=== PATIENT | male | born 1950 | race Caucasian/White ===

== ENCOUNTER 2021-10-28 03:18 | Outpatient (CLI) | payer MEDICARE, BC, SELFPAY | END 2021-10-28 03:19 | disposition home or self-care (01) | LOC: AMB 11-03 10:59 | PROVIDERS: PCP Family Medicine; Visit Provider Family Medicine | DX: S09.90XA Unspecified injury of head, initial encounter (principal); R42 Dizziness and giddiness; W18.2XXA Fall in (into) shower or empty bathtub, initial encounter; Y92.002 Bathroom of unspecified non-institutional (private) residence as the place of occurrence of the external cause | CPT/HCPCS: A0425; A0427 ==

== ENCOUNTER 2021-10-28 03:49 | Emergency (ER) | payer MEDICARE, BC, SELFPAY ==
[2021-10-28] VITALS (16 sets, daily range): BP systolic 78–124; BP diastolic 53–73; PULSE 70–83; RESP 14–17; TEMP 35.5; O2SAT 96–99; BMI 27.3
--- NOTE | 2021-10-28 03:59 | CRLHL7_ITS ---
For Patients: As a result of the Century Cures Act, medical imaging exams and procedure reports are released immediately into your electronic medical record. You may view this report before your referring provider. If you have questions, please contact your health care provider. INDICATION: Syncope, head injury from fall TECHNIQUE: CT Head without i.v. contrast. Coronal and sagittal reformats were obtained. COMPARISON: None FINDINGS: CSF space: Unremarkable for age. Brain: No evidence of mass, acute infarction or hemorrhage is seen. No mass-effect or midline shift is seen. Mild diffuse cortical atrophy is noted. The brain parenchyma is otherwise normal in appearance with preservation of the corral-white matter junction. Calvarium: The visualized paranasal sinuses are well aerated. The mastoid air cells are clear. The visualized orbits are grossly unremarkable. The calvarium is unremarkable in appearance with no fractures identified. IMPRESSION: 1. No evidence of acute infarction, intracranial hemorrhage, or mass-effect seen. Please note that all CT scans at this facility use dose modulation, iterative reconstruction, and/or weight-based dosing when appropriate to reduce radiation dose to as low as reasonably achievable. Dictated by: Austin Contreras MD @ 10/28/2021 04:49:19 (Electronically Signed)
--- NOTE | 2021-10-28 04:00 | CRLHL7_ITS ---
For Patients: As a result of the Cures Act, medical imaging exams and procedure reports are released immediately into your electronic medical record. You may view this report before your referring provider. If you have questions, please contact your health care provider. INDICATION: Syncope, chest injury from fall TECHNIQUE: Chest radiograph 1 view on 2 films COMPARISON: 02/06/2016 FINDINGS: Mediastinum: The mediastinum is normal in appearance. The heart silhouette is normal in size and morphology. Lung: Both lungs are unremarkable in appearance. No sign of pleural effusion seen. No pneumothorax is identified. Bone and Soft tissue: Unremarkable for age. IMPRESSION: 1. No acute cardiopulmonary disease is seen. Dictated by: Austin Contreras MD @ 10/28/2021 04:45:07 (Electronically Signed)
--- NOTE | 2021-10-28 04:00 | CRLHL7_ITS ---
For Patients: As a result of the Century Cures Act, medical imaging exams and procedure reports are released immediately into your electronic medical record. You may view this report before your referring provider. If you have questions, please contact your health care provider. INDICATION: Syncope, fall with cervical spine injury TECHNIQUE: CT cervical spine without i.v. contrast. Coronal and sagittal reformats were obtained. COMPARISON: None FINDINGS: Alignment: Straightening of the spine is noted. Bone: No acute fractures or aggressive bone lesions are identified. Disc: There are degenerative disc disease noted at C3-4 through C6-7. Scattered facet osteoarthritis is noted bilaterally. Soft tissue: The prevertebral soft tissues are unremarkable in appearance. The visualized lung apices and mediastinum are unremarkable. Bilateral calcified carotid plaques are noted. IMPRESSION: 1. No acute osseous injuries are identified. Please note that all CT scans at this facility use dose modulation, iterative reconstruction, and/or weight-based dosing when appropriate to reduce radiation dose to as low as reasonably achievable. Dictated by: Austin Contreras MD @ 10/28/2021 04:53:22 (Electronically Signed)
--- NOTE | 2021-10-28 04:03 | ED_ITS ---
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 He ate and drank fine but felt sore in his arms and legs when he went to bed. Pt got up at 2:00 am and felt dizzy while using the bathroom. He went back to bed not feeling well with muscle aches. He then got up and took a hot bath after which he felt very light headed and tipped forward from a seated position bumping the front of his head. He did not lose consciousness. He made a full recovery but called for an ambulance to bring him to the hospital. Pt states no chest pain, palpitations, nausea, vomiting, cough, abd pain fever or chills. Pt states that he is prone to low blood pressure. which is present here in the ED as well. Not currently having any pain. Related Data Home Medications Medication Instructions Recorded Confirmed No Known Home Medications 10/28/21 10/28/21 albuterol sulfate 90 mcg/actuation 1 inh inhalation Q4H PRN shortness 10/28/21 10/28/21 aerosol inhaler of breath or wheezing cetirizine 10 mg tablet (24Hour 10 mg PO DAILY PRN 10/28/21 10/28/21 Allergy) guaifenesin 600 mg tablet, 600 mg PO BID PRN 10/28/21 10/28/21 extended release 12 hr (Mucinex) multivitamin (Daily Multi-Vitamin 1 tab PO DAILY 10/28/21 10/28/21 tablet) Allergies Allergy/AdvReac Type Severity Reaction Status Date / Time cat dander Allergy Verified 10/28/21 04:11 Review of Systems Status of ROS: Reports: 10 or more systems reviewed and unremarkable except as noted in History and below [facility] Medical History (Updated 10/28/21 @ 05:59 by Clemente Fregoso MD) Diverticulitis Surgical History (Updated 10/28/21 @ 04:07 by Clemente Fregoso MD) History of partial colectomy Social History Smoking Status: Never smoker Do you use any of these nicotine containing products: None How often do you have a drink containing alcohol: 2-3 times a week How many standard drinks containing alcohol do you have on a typical day: 1 or 2 How often do you have six or more drinks on one occasion: Never AUDIT-C Alcohol total score: 3 Non-prescribed substance use: denies use Exam Narrative: Exam Narrative: EXAM GENERAL: Patient appears comfortable and well. Head is normocephalic no signs of recent trauma EYES: No scleral icterus. ENT: Tympanic membranes and oropharynx normal. THYROID: no thyroid nodules or thyromegaly. LYMPH: No supraclavicular or cervical lymphadenopathy. SKIN: Visible skin seen during exam normal or with benign process only. EXT: No dependent lower extremity pedal edema. HEART: Regular rate and rhythm with no murmurs, rubs, or gallops. LUNGS: Clear to auscultation bilaterally with no crackles or wheezes. ABD: Soft, non tender, non distended. Midline abdominal incision well healed PSYCH: Good eye contact, speech is not pressured. Neurologic cranial nerves 2-12 grossly intact no focal defects. Const: Vital Signs, click to edit/add: Vital Signs - 24 hr 10/28/21 04:00 10/28/21 04:00 10/28/21 04:10 Temperature 96 F L Pulse Rate Pulse Rate [Left P ulse Oximeter] 76 75 71 Respiratory Rate 14 16 15 Blood Pressure Blood Pressure [Le ft Upper Arm] 124/64 78/56 L 86/53 L Pulse Oximetry 97 97 97 Oxygen Delivery Me od Room Air Room Air Room Air 10/28/21 04:20 10/28/21 04:22 10/28/21 04:41 Temperature Pulse Rate 74 74 Pulse Rate [Left P ulse Oximeter] 79 Respiratory Rate 17 Blood Pressure 102/62 95/67 Blood Pressure [Le ft Upper Arm] 102/62 Pulse Oximetry 98 99 98 [facility] 10/28/21 04:52 10/28/21 04:53 10/28/21 05:01 Temperature Pulse Rate 71 72 70 Pulse Rate [Left P ulse Oximeter] Respiratory Rate Blood Pressure 113/61 113/65 Blood Pressure [Le ft Upper Arm] Pulse Oximetry 96 96 96 Oxygen Delivery Ma thod 10/28/21 05:12 10/28/21 05:15 10/28/21 05:22 Temperature Pulse Rate 76 83 78 Pulse Rate [Left P ulse Oximeter] Respiratory Rate Blood Pressure 111/63 109/67 Blood Pressure [Le ft Upper Arm] Pulse Oximetry 97 97 97 Oxygen Delivery Me thod Course Course Hospital Course: Patient will CT of the head neck. EKG CBC troponin basic metabolic panel chest x-ray and d dimer. UA. 1 Liter of normal saline given. COVID collected Reevaluation(s) Reevaluation #1: Pt feeling well. CT of head and cervical spine negative upon my review as is chest x ray. CBC shows mild anemia, bmp, covid, ua d dimer all normal. 1 liter of Normal Saline given. Troponin negative times 2. Time: 05:54 Vital Signs Vital signs: Initial Vital Signs Temperature 96 F L 10/28/21 04:00 Temperature Source Temporal Artery Scan 10/28/21 04:00 Pulse Rate 76 10/28/21 04:00 Pulse Rhythm 10/28/21 04:00 Respiratory Rate 14 10/28/21 04:00 Respiratory Effort 10/28/21 04:00 Respiratory Depth Normal 10/28/21 04:00 Respiratory Pattern 10/28/21 04:00 Blood Pressure 124/64 10/28/21 04:00 Blood Pressure Mean 84 10/28/21 04:00 Blood Pressure Position Supine 10/28/21 04:00 Pulse Oximetry 97 10/28/21 04:00 Oxygen Delivery Method 10/28/21 04:00 Vital Signs Temperature 96 F L 10/28/21 04:00 Pulse Rate 76 10/28/21 04:00 Respiratory Rate 14 10/28/21 04:00 Blood Pressure 124/64 10/28/21 04:00 Pulse Oximetry 97 10/28/21 04:00 Oxygen Delivery Method 10/28/21 04:00 Temperature 96 F L 10/28/21 04:00 Pulse Rate 78 10/28/21 05:22 Respiratory Rate 17 10/28/21 04:20 Blood Pressure 109/67 10/28/21 05:22 Pulse Oximetry 97 10/28/21 05:22 Oxygen Delivery Method 10/28/21 04:20 Medical Decision Making MDM Narrative Medical decision making narrative: Pt who takes no home medications presents with syncope. No injuries found. Only lab abnormality is mild anemia. Pt given IV hydration and monitored. Pt feeling well and would like to go home with outpt follow up. Differential Diagnosis Differential Diagnosis: Vasovagal syncope, CT, PE, Seizure, Cerebral or Cervical Injury Lab Data Labs: Lab Results 10/28/21 10/28/21 10/28/21 Range/Units 04:10 04:10 04:10 WBC 11.19 H (4.50-11.00) K/uL RBC 3.52 L (4.30-5.90) m/uL Hgb 11.1 L (13.5-17.5) gm/dL Hct 34.2 L (37.0-53.0) % MCV 97 (80-100) fL MCH 32 (26-34) pg MCHC 33 (32-36) gm/dL RDW Coeff of Joseph 13.4 (11.5-15.5) % Plt Count 232 (140-440) K/uL Neut % (Auto) 85.2 H (42.0-72.0) % Lymph % (Auto) 8.8 L (20-44) % [place] % (Auto) 5.4 (0.0-11.0) % Eos % (Auto) 0.2 (0.0-7.0) % Baso % (Auto) 0.2 (0.0-3.0) % Neut # (Auto) 9.50 H (1.7-7.0) K/uL Lymph # (Auto) 1.00 (0.90-2.90) K/uL [place] # (Auto) 0.60 (0.00-0.90) K/UL Eos # (Auto) 0.00 (0.00-0.50) K/uL Baso # (Auto) 0.00 (0.00-0.30) K/uL Abs Immat Gran (auto) 0.02 (0.00-0.30) K/uL D-Dimer Quant (PE/DVT) 0.41 (0.00-0.50) ug/ml Sodium 139 (135-149) mmol/L Potassium 5.1 (3.6-5.1) mmol/L Chloride 106 (96-114) mmol/L Carbon Dioxide 26 (20-32) mmol/L BUN 61 H (7-30) mg/dL Creatinine 1.3 (0.5-1.5) mg/dL Estimated Creat Clear 52.87 Estimated GFR 59 ml/min Glucose 146 H (60-115) mg/dL Calcium 8.6 (8.4-10.6) mg/dL Troponin I < 0.01 L (0.01-0.04) ng/mL SARS-CoV-2 (PCR) (Negative) 10/28/21 Range/Units 04:15 WBC (4.50-11.00) K/uL RBC (4.30-5.90) m/uL Hgb (13.5-17.5) gm/dL Hct (37.0-53.0) % MCV (80-100) fL MCH (26-34) pg MCHC (32-36) gm/dL RDW Coeff of Joseph (11.5-15.5) % Plt Count (140-440) K/uL Neut % (Auto) (42.0-72.0) % Lymph % (Auto) (20-44) % [place] % (Auto) (0.0-11.0) % Eos % (Auto) (0.0-7.0) % Baso % (Auto) (0.0-3.0) % Neut # (Auto) (1.7-7.0) K/uL Lymph # (Auto) (0.90-2.90) K/uL [place] # (Auto) (0.00-0.90) K/UL Eos # (Auto) (0.00-0.50) K/uL Baso # (Auto) (0.00-0.30) K/uL Abs Immat Gran (auto) (0.00-0.30) K/uL D-Dimer Quant (PE/DVT) (0.00-0.50) ug/ml Sodium (135-149) mmol/L Potassium (3.6-5.1) mmol/L Chloride (96-114) mmol/L Carbon Dioxide (20-32) mmol/L BUN (7-30) mg/dL Creatinine (0.5-1.5) mg/dL Estimated Creat Clear Estimated GFR ml/min Glucose (60-115) mg/dL Calcium (8.4-10.6) mg/dL Troponin I (0.01-0.04) ng/mL SARS-CoV-2 (PCR) Negative SARS-CoV-2 (Negative) Discharge Plan Discharge Clinical Impression: Anemia, Syncope Patient Disposition: Home, Self-Care Condition: Stable Additional Instructions: Follow up with your doctor in the next week Activity Level: No Restrictions Discharge Diet: Regular Prescriptions: No Action albuterol sulfate 90 mcg/actuation HFA aerosol inhaler 1 inh INHALATION Q4H PRN (Reason: shortness of breath or wheezing) Hold Instructions: Doctor's Order Label Comments: INHALE TWO PUFFS BY MOUTH EVERY 4 HOURS NEEDED FOR SHORTNESS OF BREATH OR WHEEZING No Known Home Medications guaifenesin [Mucinex] 600 mg tablet extended release 12hr 600 mg PO BID PRN Hold Instructions: Doctor's Order cetirizine [24Hour Allergy] 10 mg tablet 10 mg PO DAILY PRN Hold Instructions: Doctor's Order multivitamin [Daily Multi-Vitamin] Tablet 1 tab PO DAILY Hold Instructions: Doctor's Order Follow Up/Referrals: Salvador Torres MD [Primary Care Provider] - Stand Alone Forms: [facility] Info Instructions
--- NOTE | 2021-10-28 04:05 | PC.NURSE ---
Blood pressures noted to be soft. Dr. Fregoso aware, will give 1L fluids.
[2021-10-28] MEDS: 0.9 % SODIUM CHLORIDE 1000 ml 1,000 ML IV (04:08)
[2021-10-28 04:20] LABS: Basophils Percent Auto 0.2 % (0.0-3.0); Eosinophils Percent Auto 0.2 % (0.0-7.0); Hematocrit 34.2 % (37.0-53.0); Hemoglobin* 11.1 gm/dL (13.5-17.5); Immature Granulocytes Abs Auto 0.02 K/uL (0.00-0.30); Lymphocytes Percent Auto 8.8 % (20-44); Mean Corpuscular HGB Conc 33 gm/dL (32-36); Mean Corpuscular Hemoglobin 32 pg (26-34); Mean Corpuscular Volume 97 fL (80-100); Monocytes Percent Auto 5.4 % (0.0-11.0); Neutrophils Percent Auto 85.2 % (42.0-72.0); Platelet Count* 232 K/uL (140-440); RDW Coefficient of Variation % 13.4 % (11.5-15.5); Red Blood Count 3.52 m/uL (4.30-5.90); White Blood Count* 11.19 K/uL (4.50-11.00)
[2021-10-28 04:21] LABS: Slide Review Reflex No
[2021-10-28 04:33] LABS: Chloride* 106 mmol/L (96-114); Potassium* 5.1 mmol/L (3.6-5.1); Sodium* 139 mmol/L (135-149)
[2021-10-28 04:36] LABS: Blood Urea Nitrogen* 61 mg/dL (7-30); Carbon Dioxide* 26 mmol/L (20-32); Creatinine* 1.3 mg/dL (0.5-1.5); Est. Creatinine Clearance* 52.87; Estimated Glomerular Filt Rate 59 ml/min; Glucose* 146 mg/dL (60-115)
[2021-10-28 04:37] LABS: Calcium* 8.6 mg/dL (8.4-10.6)
[2021-10-28 04:38] LABS: D Dimer Quantitative* 0.41 ug/ml (0.00-0.50)
[2021-10-28 04:49] LABS: Troponin I* < 0.01 ng/mL (0.01-0.04)
[2021-10-28 05:19] LABS: SARS PCR* Negative SARS-CoV-2 (Negative)
[2021-10-28 05:57] LABS: Troponin, Point-of-Care* 0.03 ng/ml (0.01-0.04)
== END 2021-10-28 06:13 | disposition home or self-care (01) ==
PROVIDERS: Emergency Provider Internal Medicine; PCP Family Medicine
DX: Z53.21 Procedure and treatment not carried out due to patient leaving prior to being seen by health care provider (principal)
CPT/HCPCS: 99281; 36415; 70450; 71045; 72125; 80048; 81003; 84484; 85025; 85379; 87635; 93005; 99283; J7030

== ENCOUNTER 2021-10-28 10:07 | Emergency (ER) | payer MEDICARE, BC, SELFPAY ==
[2021-10-28] VITALS (8 sets, daily range): BP systolic 92–114; BP diastolic 50–69; PULSE 70–94; RESP 18; O2SAT 96–99; BMI 27.3
--- NOTE | 2021-10-28 10:32 | CRLHL7_ITS ---
For Patients: As a result of the Century Cures Act, medical imaging exams and procedure reports are released immediately into your electronic medical record. You may view this report before your referring provider. If you have questions, please contact your health care provider. INDICATION: FALL AGAIN AFTER ER VISIT THIS AM. LACERATIONS TO BACK OF HEAD. COMPARISON: 10/28/2021 TECHNIQUE: A CT volumetric acquisition was performed of the brain without IV contrast. Please note that all CT scans at this facility use dose modulation, iterative reconstruction, and/or weight-based dosing when appropriate to reduce radiation dose to as low as reasonably achievable. FINDINGS: There is no intracranial hemorrhage, mass or mass effect. Mild generalized cortical atrophy. No hydrocephalus or extra-axial fluid collection. Normal corral-white differentiation. No fracture. Minimal mucosal thickening within the maxillary sinuses. IMPRESSION: No intracranial hemorrhage. Please note that all CT scans at this facility use dose modulation, iterative reconstruction, and/or weight-based dosing when appropriate to reduce radiation dose to as low as reasonably achievable. Dictated by Willem Castillo MD @ 10/28/2021 11:12:19 AM (Electronically Signed)
--- NOTE | 2021-10-28 10:49 | ED_ITS ---
HPI - General Adult General Date Seen: 10/28/21 Chief complaint: Syncope/Fainted Stated complaint: Fell hit head Time Seen by Provider: 10/28/21 10:26 Source: patient, family ( is present) and RN notes reviewed Mode of arrival: ambulatory Limitations: no limitations History of Present Illness HPI narrative: Patient is a 71-year-old male coming into the ER with recurrent syncope. He re portedly was seen overnight with syncope. Reports he had a head CT, neck CT, EKG and labs. He did treat remain yesterday, felt achy from doing that could not sleep last night. He got up around 2:00 a.m. to take a warm tub bath, fall asleep in the tub for little bit, got out of the tub and felt a little dizzy, made it to the toilet to sit down because he was feeling dizzy and then reportedly went out. He was discharged from his evaluation here in the ER for out patient follow up with his primary care doctor. He when out today in marked about 80 ft outside and states he felt good, the fracture felt good. Later he was sitting at the kitchen table and just completely when out. His was sitting across from him and she stated he all the sudden had a brief vacant stare and then slumped over. He actually went off of his chair, hit the top of his head and has 2 cuts there. He had the right front of his head on sober trigger as well. She did not note any seizure activity. Came to quickly. He notes no prodromal symptoms, no cardiac symptoms leading up to this. They note that his blood pressure does run low. Reviewed with them that he really should not be having issues with syncope while sitting at the kitchen table if he has been sitting there, would not think that this would be orthostatic changes. He does note he has restless legs syndrome mint night. His thoughts on yesterday is that he really did over do it outside and maybe felt a little dehydrated. Related Data Home Medications Medication Instructions Recorded Confirmed No Known Home Medications 10/28/21 10/28/21 albuterol sulfate 90 mcg/actuation 1 inh inhalation Q4H PRN shortness 10/28/21 10/28/21 aerosol inhaler of breath or wheezing cetirizine 10 mg tablet (24Hour 10 mg PO DAILY PRN 10/28/21 10/28/21 Allergy) guaifenesin 600 mg tablet, 600 mg PO BID PRN 10/28/21 10/28/21 extended release 12 hr (Mucinex) multivitamin (Daily Multi-Vitamin 1 tab PO DAILY 10/28/21 10/28/21 tablet) Allergies Allergy/AdvReac Type Severity Reaction Status Date / Time cat juan manuel Allergy Verified 10/28/21 04:11 Review of Systems Status of ROS: Reports: 10 or more systems reviewed and unremarkable except as noted in History and below [facility] Medical History (Updated 10/28/21 @ 13:22 by Virginia Soliz MD) Diverticulitis Surgical History (Updated 10/28/21 @ 04:07 by Clemente Fregoso MD) History of partial colectomy Social History Smoking Status: Never smoker Do you use any of these nicotine containing products: None How often do you have a drink containing alcohol: 2-3 times a week How many standard drinks containing alcohol do you have on a typical day: 1 or 2 How often do you have six or more drinks on one occasion: Never AUDIT-C Alcohol total score: 3 Non-prescribed substance use: denies use Exam Const: Vital Signs, click to edit/add: Vital Signs - 24 hr 10/28/21 10:13 10/28/21 11:05 10/28/21 11:30 Pulse Rate [Right Pulse Oximeter] 82 77 Pulse Rate [orthos tatic lying Pulse Oximeter] 77 Pulse Rate [orthos tatic sitting Puls e Oximeter] 82 Pulse Rate [orthos tatic standing Pul se Oximeter] 94 Respiratory Rate 18 Blood Pressure [Ri ght Upper Arm] 92/58 L 103/65 Blood Pressure [or thostatic lying Ri ght Arm] 114/57 L Blood Pressure [or thostatic sitting Right Arm] 100/57 L Blood Pressure [or thostatic standing Right Arm] 96/63 Pulse Oximetry 99 96 Oxygen Delivery Me thod Room Air Room Air 10/28/21 12:30 10/28/21 13:30 10/28/21 13:00 Pulse Rate [Right Pulse Oximeter] 70 75 85 Pulse Rate [orthos tatic lying Pulse Oximeter] Pulse Rate [orthos tatic sitting Puls e Oximeter] Pulse Rate [orthos tatic standing Pul se Oximeter] Respiratory Rate Blood Pressure [Ri ght Upper Arm] 111/69 92/50 L 92/50 L Blood Pressure [or thostatic lying Ri ght Arm] Blood Pressure [or thostatic sitting Right Arm] Blood Pressure [or thostatic standing Right Arm] Pulse Oximetry 97 98 98 Oxygen Delivery Me thod Room Air Room Air Room Air Documenting provider has reviewed patient's vital signs: yes Common normals: no apparent distress, average body habitus, oriented x3, no limitations, healthy appearing and alert General appearance: cooperative, comfortable and well kempt HENMT: Common normals: normocephalic, hearing grossly normal bilaterally, external ears normal, EAC's normal, TM's normal bilaterally, external nose normal, nasal mucous membranes and turbinates normal, moist oral mucous membranes, oropharynx normal, dentition normal and gingiva normal Head and scalp: normocephalic Nose: external nose normal and nasal mucous membranes and turbinates normal External ear: external ears normal External auditory canal: EAC's normal Tympanic membrane: TM's normal bilaterally Other: On his right frontal forehead he has about a 2 cm diameter small hematoma with superficial abrasion in the center. Does not require any pair, no active bleeding. On the right parietal occipital area of his scalp he has 2 lacerations about each 1.5 cm linear. The more lateral anterior 1 looks like it might require some closure. Will have nursing staff clean. The 1 a little behind it more central looks like it might be closed. Eye: Common normals: PERRL, EOMs intact bilaterally, conjunctivae normal and no scleral icterus Conjunctiva: conjunctiva(e) normal Pupil: PERRL Neck & C-Spine: Common normals: full ROM, no lymphadenopathy, supple, no meningeal signs, no JVD and thyroid normal Thyroid: thyroid normal Resp: Common normals: normal respiratory effort, no retractions, no use of accessory muscles and clear to auscultation bilaterally Auscultation: clear to auscultation bilaterally Cardio: Common normals: no JVD, regular rate, regular rhythm, S1 normal heart sound, S2 normal heart sound, no gallops, no clicks and no murmurs Rate: regular rate Rhythm: regular rhythm Heart sounds: S1 normal and S2 normal GI: Common normals: Normal to inspection, nondistended, normoactive bowel sounds present, soft to palpation, non-tender, no hepatosplenomegaly and no masses Palpation: soft and no hepatosplenomegaly Extremity: Common normals: normal to inspection, full ROM, normal capillary refill, no joint enlargement, no clubbing, cyanosis or edema, no calf tenderness and no pedal edema Neuro: Common normals: oriented x3, CN's II-XII intact bilaterally, moves all extremities, no focal motor deficits and no sensory deficits noted Sensorium/orientation: alert Meningeal signs: no meningeal signs Speech: speech normal Gait (neuro): normal gait Psych: Appearance: well kempt Skin: Common normals: no rashes or lesions noted General skin exam: no rashes or lesions noted Course Course Hospital Course: Will have patient on pulse oximetry, cardiac monitoring and redo his labs. We will redo his head CT with the new trauma. Had originally ordered a portable chest x-ray as well as a COVID but he had just had both of those this morning. Thus, did cancel those. I certainly have concerns for cardiac arrhythmia with this history. Reevaluation(s) Reevaluation #1: Repaired his scalp with krystal, please see procedure note. Reviewed that his BUN is significantly elevated even despite receiving a L of fluids earlier today. This would suggest that he is likely inter volume depleted/dehydrated. With him having baseline low blood pressures, becoming dehydrated really could make him quite symptomatic. I have found no other focus for his syncope. I do think that he should still consider doing a Holter monitor outpatient and will order that if he is willing. He has received 1 L of normal saline but with his BUN being up, I will order a 2 L of normal saline. His orthostatics were done and do show some change but not technically meeting diagnostic criteria for orthostatic hypotension. Time: 13:00 Vital Signs Vital signs: Initial Vital Signs Temperature Source Temporal Artery Scan 10/28/21 10:13 Pulse Rate 82 10/28/21 10:13 Respiratory Rate 18 10/28/21 10:13 Blood Pressure 92/58 L 10/28/21 10:13 Blood Pressure Mean 69 10/28/21 10:13 Blood Pressure Position Sitting 10/28/21 10:13 Pulse Oximetry 99 10/28/21 10:13 Oxygen Delivery Method 10/28/21 10:13 Vital Signs Pulse Rate 82 10/28/21 10:13 Respiratory Rate 18 10/28/21 10:13 Blood Pressure 92/58 L 10/28/21 10:13 Pulse Oximetry 99 10/28/21 10:13 Oxygen Delivery Method 10/28/21 10:13 Pulse Rate 75 10/28/21 13:30 Respiratory Rate 18 10/28/21 10:13 Blood Pressure 92/50 L 10/28/21 13:30 Pulse Oximetry 98 10/28/21 13:30 Oxygen Delivery Method 10/28/21 13:30 Medical Decision Making Lab Data Lab results reviewed: Yes I reviewed the patient's lab results Lab results narrative: Hemoglobin is a bit lower from last night but this is after he had received a L of fluids while here earlier. This would be commensurate with the drop in hemoglobin I would expect after L of fluids. Labs: Lab Results 10/28/21 10/28/21 10/28/21 Range/Units 10:55 10:55 10:55 WBC 7.95 (4.50-11.00) K/uL RBC 3.25 L (4.30-5.90) m/uL Hgb 10.4 L (13.5-17.5) gm/dL Hct 31.7 L (37.0-53.0) % MCV 98 (80-100) fL MCH 32 (26-34) pg MCHC 33 (32-36) gm/dL RDW Coeff of Joseph 13.6 (11.5-15.5) % Plt Count 220 (140-440) K/uL Neut % (Auto) 85.8 H (42.0-72.0) % Lymph % (Auto) 8.1 L (20-44) % [place] % (Auto) 5.9 (0.0-11.0) % Eos % (Auto) 0.0 (0.0-7.0) % Baso % (Auto) 0.1 (0.0-3.0) % Neut # (Auto) 6.80 (1.7-7.0) K/uL Lymph # (Auto) 0.60 L (0.90-2.90) K/uL [place] # (Auto) 0.50 (0.00-0.90) K/UL Eos # (Auto) 0.00 (0.00-0.50) K/uL Baso # (Auto) 0.01 (0.00-0.30) K/uL Abs Immat Gran (auto) 0.01 (0.00-0.30) K/uL D-Dimer Quant (PE/DVT) 0.33 (0.00-0.50) ug/ml Sodium 140 (135-149) mmol/L Potassium 5.3 H (3.6-5.1) mmol/L Chloride 111 (96-114) mmol/L Carbon Dioxide 23 (20-32) mmol/L BUN 65 H (7-30) mg/dL Creatinine 1.0 (0.5-1.5) mg/dL Estimated Creat Clear 68.74 Estimated GFR 81 ml/min Glucose 91 (60-115) mg/dL Lactate (0.5-1.9) mmol/L Calcium 8.5 (8.4-10.6) mg/dL Total Bilirubin 0.4 (0.1-1.5) mg/dL AST 27 (12-35) U/L ALT 25 (4-50) U/L Alkaline Phosphatase 44 (40-150) U/L C-Reactive Protein 0.8 (0.5-1.0) mg/dL NT-Pro-B Natriuret Pep (0-125) PG/mL Total Protein 6.1 (6.0-8.3) g/dL Albumin 4.0 (3.3-5.0) g/dL POC Troponin I (0.01-0.04) ng/ml 10/28/21 10/28/21 10/28/21 Range/Units 10:55 10:55 10:55 WBC (4.50-11.00) K/uL RBC (4.30-5.90) m/uL Hgb (13.5-17.5) gm/dL Hct (37.0-53.0) % MCV (80-100) fL MCH (26-34) pg MCHC (32-36) gm/dL RDW Coeff of Joseph (11.5-15.5) % Plt Count (140-440) K/uL Neut % (Auto) (42.0-72.0) % Lymph % (Auto) (20-44) % [place] % (Auto) (0.0-11.0) % Eos % (Auto) (0.0-7.0) % Baso % (Auto) (0.0-3.0) % Neut # (Auto) (1.7-7.0) K/uL Lymph # (Auto) (0.90-2.90) K/uL [place] # (Auto) (0.00-0.90) K/UL Eos # (Auto) (0.00-0.50) K/uL Baso # (Auto) (0.00-0.30) K/uL Abs Immat Gran (auto) (0.00-0.30) K/uL D-Dimer Quant (PE/DVT) (0.00-0.50) ug/ml Sodium (135-149) mmol/L Potassium (3.6-5.1) mmol/L Chloride (96-114) mmol/L Carbon Dioxide (20-32) mmol/L BUN (7-30) mg/dL Creatinine (0.5-1.5) mg/dL Estimated Creat Clear Estimated GFR ml/min Glucose (60-115) mg/dL Lactate 1.6 (0.5-1.9) mmol/L Calcium (8.4-10.6) mg/dL Total Bilirubin (0.1-1.5) mg/dL AST (12-35) U/L ALT (4-50) U/L Alkaline Phosphatase (40-150) U/L C-Reactive Protein (0.5-1.0) mg/dL NT-Pro-B Natriuret Pep 80 (0-125) PG/mL Total Protein (6.0-8.3) g/dL Albumin (3.3-5.0) g/dL POC Troponin I 0.00 L (0.01-0.04) ng/ml Imaging Data CT scan - head: Attestation: I have reviewed the pertinent imaging results. Radiologist's impression: Patient: MARIPOSA ANTUNEZ Facility:?[facility] Patient ID:?[id number] Site Patient ID:?[id number]. Site :?[id number] Study:?CT Head -10/28/2021 10:54:59 AM Ordering Physician:?Heydi Coleman Final Report: INDICATION: FALL AGAIN AFTER ER VISIT THIS AM. LACERATIONS TO BACK OF HEAD. COMPARISON: 10/28/2021 TECHNIQUE: A CT volumetric acquisition was performed of the brain without IV contrast. Please note that all CT scans at this facility use dose modulation, iterative reconstruction, and/or weight-based dosing when appropriate to reduce radiation dose to as low as reasonably achievable. FINDINGS: There is no intracranial hemorrhage, mass or mass effect. Mild generalized cortical atrophy. No hydrocephalus or extra-axial fluid collection. Normal corral- white differentiation. No fracture. Minimal mucosal thickening within the maxillary sinuses. IMPRESSION: No intracranial hemorrhage. Please note that all CT scans at this facility use dose modulation, iterative reconstruction, and/or weight-based dosing when appropriate to reduce radiation dose to as low as reasonably achievable. Dictated by Willem Castillo MD @ 10/28/2021 11:12:19 AM (Electronic Signature) ECG Data Attestation: I personally reviewed and interpreted this ECG as follows: (Sinus rhythm with sinus arrhythmia, 80 beats per minute. No definitive ischemia or infarct noted.) Prior ECG tracings: available for review Critical Care Time Critical Care Time Critical Care Time: No Discharge Plan Discharge Clinical Impression: Acute dehydration, Syncope, Laceration of scalp Condition: Stable Instructions: Dehydration (ED), Syncope (ED), Staple Care (ED) Additional Instructions: May wash hair is usual, be careful combing your hair to not disrupt krystal. Krystal can be removed in 5-7 days, can be done at followup. If there is concerns regarding this wound becoming infected, please seek re-evaluation. Need to stay hydrated, especially important if your working outside in the sun or doing heavy physical exertion. Complete the Holter monitor and return per Radiology directions. Any recurrent syncope, please return to the ED. Activity Level: Activity as Tolerated Prescriptions: No Action albuterol sulfate 90 mcg/actuation HFA aerosol inhaler 1 inh INHALATION Q4H PRN (Reason: shortness of breath or wheezing) Hold Instructions: Doctor's Order Label Comments: INHALE TWO PUFFS BY MOUTH EVERY 4 HOURS NEEDED FOR SHORTNESS OF BREATH OR WHEEZING No Known Home Medications guaifenesin [Mucinex] 600 mg tablet extended release 12hr 600 mg PO BID PRN Hold Instructions: Doctor's Order cetirizine [24Hour Allergy] 10 mg tablet 10 mg PO DAILY PRN Hold Instructions: Doctor's Order multivitamin [Daily Multi-Vitamin] Tablet 1 tab PO DAILY Hold Instructions: Doctor's Order Follow Up/Referrals: Salvador Torres MD [Primary Care Provider] - Stand Alone Forms: [facility] Info Instructions Procedures Laceration Laceration 1: Pre procedure diagnosis: Scalp laceration Post procedure diagnosis: Same Name of person performing procedure: Virginia Soliz Site: scalp (Ended up with a 3/4 cm laceration in the right parietal occipital area of the scalp. The other area seen was just dried blood once nursing staff cleaned the wound.) Side (If applicable): right Size (cm): 0.75 Description: linear Depth: simple, single layer Local Anesthetic: lidocaine 1% and with epi Amount of anesthesia used (mL): 2 Pre-repair: wound explored, irrigated extensively and deep structures intact Skin layer closed with: other (Closed with 3 krystal, patient tolerated well, no bleeding)
[2021-10-28 11:15] LABS: Lactate* 1.6 mmol/L (0.5-1.9)
[2021-10-28 11:18] LABS: Basophils Absolute Auto 0.01 K/uL (0.00-0.30); Basophils Percent Auto 0.1 % (0.0-3.0); Hematocrit 31.7 % (37.0-53.0); Hemoglobin* 10.4 gm/dL (13.5-17.5); Immature Granulocytes Abs Auto 0.01 K/uL (0.00-0.30); Lymphocytes Percent Auto 8.1 % (20-44); Mean Corpuscular HGB Conc 33 gm/dL (32-36); Mean Corpuscular Hemoglobin 32 pg (26-34); Mean Corpuscular Volume 98 fL (80-100); Monocytes Percent Auto 5.9 % (0.0-11.0); Neutrophils Percent Auto 85.8 % (42.0-72.0); Platelet Count* 220 K/uL (140-440); RDW Coefficient of Variation % 13.6 % (11.5-15.5); Red Blood Count 3.25 m/uL (4.30-5.90); White Blood Count* 7.95 K/uL (4.50-11.00)
[2021-10-28] MEDS: 0.9 % SODIUM CHLORIDE 1000 ml 1,000 ML 500 ML IV (11:24)
[2021-10-28 11:32] LABS: Chloride* 111 mmol/L (96-114)
[2021-10-28 11:33] LABS: Potassium* 5.3 mmol/L (3.6-5.1); Slide Review Reflex No; Sodium* 140 mmol/L (135-149)
[2021-10-28 11:35] LABS: Bilirubin Total* 0.4 mg/dL (0.1-1.5); Est. Creatinine Clearance* 68.74; Estimated Glomerular Filt Rate 81 ml/min
[2021-10-28 11:36] LABS: Alanine Aminotransferase* 25 U/L (4-50); Alkaline Phosphatase* 44 U/L (40-150); Aspartate Amino Transferase* 27 U/L (12-35); Blood Urea Nitrogen* 65 mg/dL (7-30); Calcium* 8.5 mg/dL (8.4-10.6); Carbon Dioxide* 23 mmol/L (20-32); Glucose* 91 mg/dL (60-115); Total Protein* 6.1 g/dL (6.0-8.3)
[2021-10-28 11:39] LABS: C Reactive Protein* 0.8 mg/dL (0.5-1.0); D Dimer Quantitative* 0.33 ug/ml (0.00-0.50)
[2021-10-28 11:45] LABS: NT Pro B Type NatriureticPept* 80 PG/mL (0-125)
--- NOTE | 2021-10-28 12:55 | ED.NURSE ---
small head lac cleaned with shurclens
[2021-10-28] MEDS: 0.9 % SODIUM CHLORIDE 1000 ml 1,000 ML IV (13:02)
== END 2021-10-28 15:01 | disposition home or self-care (01) ==
PROVIDERS: Emergency Provider Family Medicine; PCP Family Medicine
DX: R55 Syncope and collapse (principal); D64.9 Anemia, unspecified
CPT/HCPCS: 12001; 36415; 70450; 71045; 72125; 80048; 80053; 83605; 83880; 84484; 85025; 85379; 86140; 87635; 93005; 93225; 93226; 99283; 99284; 99285; J7030

== ENCOUNTER 2021-12-15 09:08 | Outpatient (CLI) | payer MEDICARE, BC, SELFPAY | END 2021-12-15 09:09 | disposition home or self-care (01) | PROVIDERS: PCP Family Medicine; Visit Provider Surgery | DX: Z12.11 Encounter for screening for malignant neoplasm of colon (principal); K63.5 Polyp of colon; K64.4 Residual hemorrhoidal skin tags | CPT/HCPCS: 45385; 99153; J2250; J3010 ==